=== PATIENT | female | born 1965 | race Caucasian/White ===

== ENCOUNTER 2016-07-15 22:10 | Emergency (ER) | payer MEDICAID ==
[2010-12-08 14:06] VITALS: BMI 33.3
[2016-07-16 02:57] LABS: BASOPHILS 0.7 % (0.0-2.0); EOSINOPHILS 6.2 % (0-7); HEMATOCRIT 41.3 % (36.0-48.0); HEMOGLOBIN 13.7 g/dL (12-16); IMMATURE GRANULOCYTES 0.3 % (0-5); MCH 29.3 pg (26.0-34.0); MCHC 33.2 g/dL (31.0-37.0); MCV 88.4 fL (80.0-100.0); MEAN PLATELET VOLUME 10.2 fL (7.4-10.4); MONOCYTES 9.4 % (2-11); NEUTROPHILS 49.4 % (40-80); PLATELET COUNT 248 10x3/uL (130-400); RBC 4.67 10x6/uL (4.00-5.40); RDW 13.6 % (11.5-14.5); WBC 9.5 10x3/uL (4.8-10.8)
[2016-07-16 03:14] LABS: ANION GAP 12.4 mmol/L (8-16); CALCIUM 9.5 mg/dL (8.5-10.1); CARBON DIOXIDE 28.4 mmol/L (21.0-32.0); CREATININE - SERUM 0.9 mg/dL (0.6-1.3); POTASSIUM - SERUM 3.8 mmol/L (3.5-5.1)
== END 2016-07-16 04:15 | disposition home or self-care (01) ==
LOC: D.ER 22:10
PROVIDERS: Emergency Medicine
DX: M25.561 Pain in right knee (principal); F90.9 Attention-deficit hyperactivity disorder, unspecified type; I50.9 Heart failure, unspecified; J44.9 Chronic obstructive pulmonary disease, unspecified; F32.9 Major depressive disorder, single episode, unspecified; F43.10 Post-traumatic stress disorder, unspecified; F95.2 Tourette's disorder; F17.200 Nicotine dependence, unspecified, uncomplicated; F44.81 Dissociative identity disorder

== ENCOUNTER 2016-07-28 18:48 | Emergency (ER) | payer MEDICAID ==
[2010-12-08 14:06] VITALS: BMI 33.3
[2016-07-28 20:55] LABS: AMORPHOUS SEDIMENT >1+ /lpf (NONE SEEN); APPEARANCE TURBID (CLEAR); BACTERIA MODERATE /hpf (NONE SEEN); BILIRUBIN NEGATIVE (NEGATIVE); COLOR YELLOW (YELLOW); EPITHELIAL CELLS 0-5 /hpf (0-5); GLUCOSE NEGATIVE (NEGATIVE); KETONE SMALL mg/dL (NEGATIVE); LEUKOCYTE ESTERASE TRACE (NEGATIVE); MUCUS <1+ /lpf (NONE SEEN); NITRITE NEGATIVE (NEGATIVE); PROTEIN NEGATIVE (NEGATIVE); SPECIFIC GRAVITY 1.025 (1.005-1.020); WHITE CELLS - URINE 0-5 /hpf (0-5)
== END 2016-07-28 22:00 | disposition home or self-care (01) ==
LOC: D.ER 18:48
PROVIDERS: Nurse Practitioner Family
DX: M54.6 Pain in thoracic spine (principal); M62.830 Muscle spasm of back; S29.012A Strain of muscle and tendon of back wall of thorax, initial encounter; X58.XXXA Exposure to other specified factors, initial encounter; Y93.89 Activity, other specified; Y92.89 Other specified places as the place of occurrence of the external cause; M94.0 Chondrocostal junction syndrome [Tietze]; R05 Cough; F90.9 Attention-deficit hyperactivity disorder, unspecified type; I50.9 Heart failure, unspecified; J44.9 Chronic obstructive pulmonary disease, unspecified; F32.9 Major depressive disorder, single episode, unspecified; F43.10 Post-traumatic stress disorder, unspecified; F60.9 Personality disorder, unspecified; F95.2 Tourette's disorder; F17.200 Nicotine dependence, unspecified, uncomplicated

== ENCOUNTER 2016-11-20 09:10 | Inpatient (IN) | payer MEDICAID ==
[~2016-11-20] VITALS: Ht 157.5 cm; Wt 98.4 kg
[2016-11-20 10:07] LABS: BASOPHILS 0.2 % (0-2); EOSINOPHILS 4.4 % (0-7); HEMATOCRIT 39.2 % (36.0-48.0); HEMOGLOBIN 12.8 g/dL (12-16); IMMATURE GRANULOCYTES 0.3 % (0-5); LYMPHOCYTES 29.4 % (15-50); MCH 28.1 pg (26.0-34.0); MCHC 32.7 g/dL (31.0-37.0); MCV 86.2 fL (80.0-100.0); MEAN PLATELET VOLUME 9.7 fL (7.4-10.4); MONOCYTES 9.2 % (2-11); NEUTROPHILS 56.5 % (40-80); PLATELET COUNT 202 10x3/uL (130-400); RBC 4.55 10x6/uL (4.00-5.40); RDW 14.8 % (11.5-14.5); WBC 8.8 10x3/uL (4.8-10.8)
[2016-11-20 10:15] LABS: APTT 26.8 SECONDS (22.8-39.4); INR 0.96 (0.85-1.17); PROTIME 12.6 SECONDS (11.6-15.0)
[2016-11-20 10:20] LABS: ALBUMIN 3.4 g/dL (3.4-5.0); ANION GAP 13.3 mmol/L (8-16); BILIRUBIN - TOTAL 0.65 mg/dL (0.2-1.3); CALCIUM 9.2 mg/dL (8.5-10.1); CREATININE - SERUM 1.2 mg/dL (0.6-1.3); POTASSIUM - SERUM 3.3 mmol/L (3.5-5.1); PROTEIN - SERUM 6.4 g/dL (6.4-8.2)
[2016-11-20 11:10] LABS: APPEARANCE CLEAR (CLEAR); BACTERIA MODERATE /hpf (NONE SEEN); BILIRUBIN NEGATIVE (NEGATIVE); COLOR YELLOW (YELLOW); EPITHELIAL CELLS 0-5 /hpf (0-5); GLUCOSE NEGATIVE (NEGATIVE); KETONE NEGATIVE (NEGATIVE); LEUKOCYTE ESTERASE TRACE (NEGATIVE); MUCUS <1+ /lpf (NONE SEEN); NITRITE NEGATIVE (NEGATIVE); PROTEIN NEGATIVE (NEGATIVE); RED CELLS - URINE RARE /hpf (0-5); UROBILINOGEN NORMAL (NORMAL)
[2016-11-20 11:12] LABS: UDS - AMPHET POSITIVE QUAL (NEGATIVE); UDS - BARB NEGATIVE QUAL (NEGATIVE); UDS - BENZO POSITIVE QUAL (NEGATIVE); UDS - COCAINE NEGATIVE QUAL (NEGATIVE); UDS - METH NEGATIVE QUAL (NEGATIVE); UDS - OPIATE NEGATIVE QUAL (NEGATIVE); UDS - PCP NEGATIVE QUAL (NEGATIVE); UDS - THC NEGATIVE QUAL (NEGATIVE)
--- NOTE | 2016-11-20 13:20 | NUR ---
RECEIVED TO ROOM 2222 FROM ED VIA STRETCHER. IV TO L HAND PATENT. REDNESS AND SWELLING NOTED TO BLE. O2 2L NC IN USE. SPEECH SLURRED AND DIFFICULT TO UNDERSTAND. DROWSY. FALLS ASLEEP BEFORE ANSWERING QUESTIONS. UNABLE TO OBTAIN GOOD HISTORY. BED ALARM IN USE.
[2016-11-20] MEDS ORDERED: SINEMET 25-1001 EACH PO (13:36)
[2016-11-20] MEDS ORDERED: ADDERALL 30 MG30 MG PO (13:37)
[2016-11-20] MEDS ORDERED: HYDROXYZINE HCL50 MG (13:37)
[2016-11-20] MEDS ORDERED: EFFEXOR XR150 MG PO (13:38)
[2016-11-20] MEDS ORDERED: NEURONTIN600 MG PO (13:38)
[2016-11-20] MEDS ORDERED: ROBAXIN-750750 MG PO (13:39)
[2016-11-20] MEDS ORDERED: CLONAZEPAM2 MG/TAB PO (13:40)
[2016-11-20 14:10] VITALS: BP 140/80; BMI 39.8
--- NOTE | 2016-11-20 15:00 | NUR ---
RESTING QUIETLY WITH EYES CLOSED. RESP EVEN,NONLABORED.
[2016-11-20 15:58] VITALS: BP 91/61
--- NOTE | 2016-11-20 17:00 | NUR ---
BED ALARM SOUNDED. PATIENT GETTING OUT OF BED WITHOUT ASSISTANCE. ASSISTED UP TO BATHROOM. VOIDED WITHOUT DIFFICULTY. ASSISTED BACK TO BED AND BED ALARM TURNED ON. INSTRUCTED TO NOTIFY STAFF FOR ASSIST TO GET OUT OF BED.
[2016-11-20 20:00] VITALS: BP 98/56
--- NOTE | 2016-11-20 20:00 | NUR ---
ASSESSMENT PER FLOWSHEET. FOUND SEVERAL BOTTLES OF HOME MEDS IN PATIENT'S ROOM. NO FAMILY MEMBER AT BEDSIDE. REMOVED MEDS AND CIGARETTES FROM [facility] LABELED MEDS IN PHARMACY HOME MED ENVELOPE AND LABEL CIGARETTES AND PLACED IN LOCK UP AREA OF PHARMCY MED BOX. SALINE LOCK PATENT LEFT HAND. PT LYING IN BED WITH EYES CLOSED AROUSES TO VERBAL STIMULI. SOME CONFUSION WHEN AROUSED.
[2016-11-20] MEDS ORDERED: LATUDA40 MG PO (20:16)
--- NOTE | 2016-11-20 21:30 | NUR ---
MEDS GIVEN PER MAR.
--- NOTE | 2016-11-20 23:00 | NUR ---
PT GETS OUT OF BED ON HER OWN AND VOIDS IN COMMODE.
[2016-11-21] VITALS: BP 134/75
--- NOTE | 2016-11-21 00:30 | NUR ---
UP AD SEVEN TO BR VOIDS IN COMMODE.
--- NOTE | 2016-11-21 01:35 | NUR ---
RESTING IN BED SR UP X2 CALL LIGHT WITHIN REACH.
[2016-11-21 04:00] VITALS: BP 110/61
[2016-11-21 04:47] LABS: BASOPHILS 0.3 % (0-2); EOSINOPHILS 4.6 % (0-7); HEMATOCRIT 40.1 % (36.0-48.0); HEMOGLOBIN 13.2 g/dL (12-16); IMMATURE GRANULOCYTES 0.2 % (0-5); MCH 28.1 pg (26.0-34.0); MCHC 32.9 g/dL (31.0-37.0); MCV 85.5 fL (80.0-100.0); MEAN PLATELET VOLUME 9.9 fL (7.4-10.4); MONOCYTES 7.1 % (2-11); NEUTROPHILS 58.8 % (40-80); PLATELET COUNT 225 10x3/uL (130-400); RBC 4.69 10x6/uL (4.00-5.40); RDW 14.9 % (11.5-14.5); WBC 8.6 10x3/uL (4.8-10.8)
[2016-11-21 05:06] LABS: ANION GAP 10.2 mmol/L (8-16); CALCIUM 9.2 mg/dL (8.5-10.1); CARBON DIOXIDE 31.6 mmol/L (21.0-32.0); CREATININE - SERUM 1.1 mg/dL (0.6-1.3)
[2016-11-21 05:08] LABS: POTASSIUM - SERUM 3.8 mmol/L (3.5-5.1)
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
[2016-11-21 08:09] VITALS: BP 121/57
--- NOTE | 2016-11-21 12:00 | NUR ---
RIGHT FOOT HAS 2 SMALL SCABBED AREAS ON 3RD AND 4TH TOE.ALSO SLIGHTLY DARK AREA ON LEFT FOOT.STATES SHE GOT THOSE WHEN [facility].SITES ON LEFT FOOT WITHOUT DRAINAGE.DISCOLORED AREA ON LEFT FOOT NOT OPEN.
[2016-11-21 13:00] VITALS: Ht 157.5 cm; Wt 98.4 kg
--- NOTE | 2016-11-21 13:05 | NUR ---
WOUND CARE CONSULT: BILATERAL LOWER LEGS SEEN WITH CELLULITIS. NO SKIN BREAKDOWN OR DRAINAGE. SKIN IS SLIGHTY RED IN COLOR AND 2+ EDEMA IS SEEN. BOTTOM OF RIGHT PINKIE IS A 1.0 CM X 1.0 CM BLACK UNSTAGABLE AREA AND THE BOTTOM OG RIGHT 4TH TOE IS A 0.5 CM X 0.5 CM BLACK UNSTAGABLE AREA. PATIENT REPORTS THAT WHEN SHE WAS DISCHARGED FROM [facility], THAT SHE HAD TO WALK HOME BAREFOOT. PATIENT IS ENCOURAGED TO KEEP LEGS PROPPED UP ON PILLOWS TO HELP WITH THE SWELLING. WOUND CARE WILL FOLLOW NEEDED.
--- NOTE | 2016-11-21 15:04 | NUR ---
PT NAPPING WITHOUT DISTRESS.DOOR OPEN TO MONITOR.BED ALARM ON AND FUNCTIONING
--- NOTE | 2016-11-21 17:22 | NUR ---
HAS BEEN TALKING ON PHONE.REMAINS WITHOUT DISTRESS.WITHOUT CHANGE FROM INITIAL SHIFT ASSESSMENT.CONT PLAN OF CARE
[2016-11-21 20:00] VITALS: BP 106/74
[2016-11-22] VITALS: BP 110/80
[2016-11-22 04:00] VITALS: BP 112/77
[2016-11-22 06:00] LABS: BASOPHILS 0.6 % (0-2); EOSINOPHILS 4.7 % (0-7); HEMATOCRIT 41.9 % (36.0-48.0); HEMOGLOBIN 13.6 g/dL (12-16); IMMATURE GRANULOCYTES 0.2 % (0-5); LYMPHOCYTES 33.7 % (15-50); MCH 27.9 pg (26.0-34.0); MCHC 32.5 g/dL (31.0-37.0); MCV 85.9 fL (80.0-100.0); MEAN PLATELET VOLUME 10.2 fL (7.4-10.4); MONOCYTES 10.9 % (2-11); NEUTROPHILS 49.9 % (40-80); PLATELET COUNT 253 10x3/uL (130-400); RBC 4.88 10x6/uL (4.00-5.40)
[2016-11-22 06:22] LABS: ALBUMIN 3.4 g/dL (3.4-5.0); ANION GAP 13.8 mmol/L (8-16); BILIRUBIN - TOTAL 0.37 mg/dL (0.2-1.3); CALCIUM 9.4 mg/dL (8.5-10.1); CARBON DIOXIDE 30.4 mmol/L (21.0-32.0); CREATININE - SERUM 1.2 mg/dL (0.6-1.3); POTASSIUM - SERUM 4.2 mmol/L (3.5-5.1)
--- NOTE | 2016-11-22 06:43 | NUR ---
MEDS GIVEN PER MAR.
--- NOTE | 2016-11-22 07:30 | NUR ---
ASSESSMENT PER FLOW SHEET.PT WITHOUT DISTRESS.DENIES NEEDS AT PRESENT.FALL PREVENTION IN PLACE.CALL LIGHT IN REACH.DOOR OPEN TO MONITOR
[2016-11-22 08:09] VITALS: BP 121/59
--- NOTE | 2016-11-22 11:43 | NUR ---
Patient Name: PRAMOD KIRKPATRICK Admission Status: ER Accout number: [id number] Admission Date: 11-20-2016 : 1965 Admission Diagnosis:CELLULITIS OF RIGHT LOWER LIMB Attending: WILLIAMS Current LOS: 2 Anticipated DC Date: 11-22-2016 Planned Disposition: Home Primary Insurance: [place] Discharge Planning Comments: CM MET WITH PATIENT REGARDING D/C NEEDS AND PLANS. PATIENT STATED SHE IS NOW HOMELESS AND HER FRIEND (MANASA) WILL BE TAKING HER IN AT DISCHARGE TODAY. MANASA WILL BE DRIVING HER HOME. PATIENT IS INDEPENDENT WITH HER CARE AND HAS A CANE AND WALKER SOMEWHERE. PATIENTS PCP IS AT [facility] AND PHARMACY IS [facility] [address]. PATIENT REF. HOME HEALTH. CM WILL CONTINUE TO FOLLOW PATIENT WITH D/C NEEDS AND PLANS. PCP [facility] [address] [phone] MANASA (FRIEND) [phone] Label Stitcher: Ileana Fofana Is the patient Alert and Oriented? Yes 0 * How many steps to enter\exit or inside your home? 0 0 * PCP [facility] [place] 0 * Pharmacy [facility] [address] 0 * Preadmission Environment Custodial 0 * ADLs Independent 0 * Equipment Walker 0 * List name and contact numbers for known caregivers / representatives who currently or will assist patient after discharge: MANASA (FRIEND) [phone] * Community resources currently utilized None 0 * Additional services required to return to the preadmission environment? Yes 0 * Can the patient safely return to the preadmission environment? Yes 0 * Has this patient been hospitalized within the prior 30 days at any hospital? No 0 Grand Total: 0
[2016-11-22 11:59] VITALS: BP 120/71
[2016-11-22] MEDS ORDERED: ACIDOPHILUS LAC1 CAP PO (12:04)
[2016-11-22] MEDS ORDERED: CLEOCIN HCL300 MG PO (12:04)
[2016-11-22] MEDS ORDERED: TYLENOL W/CODEI1 TAB PO (13:17)
--- NOTE | 2016-11-22 14:01 | NUR ---
CM REASSESSMENT NOTE: PATIENT WILL D/C TODAY. MANASA (FRIEND) WILL PICK HER UP BETWEEN 5:30. PATIENT REF. HOME HEALTH.
[2016-11-22 15:19] VITALS: BP 100/60
--- NOTE | 2016-11-22 17:40 | NUR ---
DISCHARGE INSTRUCTIONS ,STATES UNDERSTANDING.IV DCD WITH CATH INTACT.LEFT UNIT VIA WHEELCHAIR.
== END 2016-11-22 17:42 | disposition home or self-care (01) | DRG 603 ==
LOC: D.ER 09:10 → D.MS 11:32
PROVIDERS: Emergency Medicine; Family Medicine; ADMIT Emergency Medicine
DX: L03.115 Cellulitis of right lower limb (principal); F17.203 Nicotine dependence unspecified, with withdrawal; F31.9 Bipolar disorder, unspecified; J45.909 Unspecified asthma, uncomplicated; F20.9 Schizophrenia, unspecified; F15.10 Other stimulant abuse, uncomplicated; F41.9 Anxiety disorder, unspecified; F90.9 Attention-deficit hyperactivity disorder, unspecified type

== ENCOUNTER 2016-12-08 11:48 | Emergency (ER) | payer MEDICAID ==
[2016-11-21 13:00] VITALS: BMI 39.7
[~2016-12-08 11:48] MED LIST: ACIDOPHILUS LAC1 CAP PO; ADDERALL 30 MG30 MG PO; CLEOCIN HCL300 MG PO; CLONAZEPAM2 MG/TAB PO; EFFEXOR XR150 MG PO; HYDROXYZINE HCL50 MG; LATUDA40 MG PO; NEURONTIN600 MG PO; ROBAXIN-750750 MG PO; SINEMET 25-1001 EACH PO; TYLENOL W/CODEI1 TAB PO
== END 2016-12-08 14:42 | disposition home or self-care (01) ==
LOC: D.ER 11:48
DX: S39.012A Strain of muscle, fascia and tendon of lower back, initial encounter (principal); W01.0XXA Fall on same level from slipping, tripping and stumbling without subsequent striking against object, initial encounter; Y93.89 Activity, other specified; Y92.89 Other specified places as the place of occurrence of the external cause; M79.1 Myalgia

== ENCOUNTER → 2017-02-02 09:33 | Outpatient (CLI) | payer MEDICAID ==
[2016-11-21 13:00] VITALS: BMI 39.7
== END | disposition home or self-care (01) ==
LOC: D.US 09:33
DX: M79.604 Pain in right leg (principal)

== ENCOUNTER → 2017-03-02 08:19 | Outpatient (CLI) | payer MEDICAID ==
[2016-11-21 13:00] VITALS: BMI 39.7
== END | disposition home or self-care (01) ==
LOC: D.CN 08:19 → D.RT 08:19
DX: Z13.6 Encounter for screening for cardiovascular disorders (principal)

== ENCOUNTER 2017-03-09 16:39 | Emergency (ER) | payer MEDICAID ==
[2016-11-21 13:00] VITALS: BMI 39.7
== END 2017-03-09 21:04 | disposition home or self-care (01) ==
LOC: D.ER 16:39
DX: S63.502A Unspecified sprain of left wrist, initial encounter (principal); W19.XXXA Unspecified fall, initial encounter; Y93.89 Activity, other specified; Y92.029 Unspecified place in mobile home as the place of occurrence of the external cause

== ENCOUNTER 2017-04-29 12:51 | Emergency (ER) | payer MEDICAID ==
[2016-11-21 13:00] VITALS: BMI 39.7
== END 2017-04-29 14:37 | disposition home or self-care (01) ==
LOC: D.ER 12:51
DX: L25.9 Unspecified contact dermatitis, unspecified cause (principal); S69.92XA Unspecified injury of left wrist, hand and finger(s), initial encounter; X58.XXXA Exposure to other specified factors, initial encounter; Y93.89 Activity, other specified; Y92.89 Other specified places as the place of occurrence of the external cause; F17.200 Nicotine dependence, unspecified, uncomplicated

== ENCOUNTER 2017-09-18 13:11 | Emergency (ER) | payer MEDICAID ==
[2016-11-21 13:00] VITALS: BMI 39.7
== END 2017-09-18 17:20 | disposition home or self-care (01) ==
LOC: D.ER 13:11
DX: Z76.0 Encounter for issue of repeat prescription (principal)

== ENCOUNTER 2017-12-06 11:58 | Emergency (ER) | payer MEDICAID ==
[~2017-12-06] VITALS: Ht 157.5 cm; Wt 109.1 kg
[2017-12-06 12:22] VITALS: Ht 157.5 cm; Wt 109.1 kg
[2017-12-06] MEDS ORDERED: ROBAXIN-750750 MG PO (14:08)
[2017-12-06] MEDS ORDERED: TALWIN NX1 TAB PO (14:08)
[2017-12-06 14:27] VITALS: BP 101/71
== END 2017-12-06 14:27 | disposition home or self-care (01) ==
LOC: D.ER 11:58
DX: S80.01XA Contusion of right knee, initial encounter (principal); W10.9XXA Fall (on) (from) unspecified stairs and steps, initial encounter; Y93.89 Activity, other specified; Y92.019 Unspecified place in single-family (private) house as the place of occurrence of the external cause; M25.511 Pain in right shoulder; M25.532 Pain in left wrist; M25.531 Pain in right wrist; F17.200 Nicotine dependence, unspecified, uncomplicated

== ENCOUNTER 2018-01-23 21:43 | Emergency (ER) | payer MEDICAID ==
[~2018-01-23 21:43] MED LIST changes: +TALWIN NX1 TAB PO
[2018-01-23 21:45] VITALS: Ht 157.5 cm
[2018-01-24] MEDS ORDERED: ROBAXIN500 MG PO (00:57)
[2018-01-24] MEDS ORDERED: VOLTAREN75 MG PO (00:57)
[2018-01-24] MEDS ORDERED: TALWIN NX1 TAB PO (01:00)
[2018-01-24 02:00] VITALS: BP 112/61
== END 2018-01-24 02:00 | disposition home or self-care (01) ==
LOC: D.ER 21:43
DX: S09.90XA Unspecified injury of head, initial encounter (principal); W10.9XXA Fall (on) (from) unspecified stairs and steps, initial encounter; Y93.89 Activity, other specified; Y92.019 Unspecified place in single-family (private) house as the place of occurrence of the external cause; S39.012A Strain of muscle, fascia and tendon of lower back, initial encounter; F17.200 Nicotine dependence, unspecified, uncomplicated; F90.9 Attention-deficit hyperactivity disorder, unspecified type; G62.9 Polyneuropathy, unspecified

== ENCOUNTER 2018-04-10 13:03 | Emergency (ER) | payer MEDICAID ==
[~2018-04-10] VITALS: Ht 157.5 cm; Wt 106.8 kg
[~2018-04-10 13:03] MED LIST changes: +ROBAXIN500 MG PO; +VOLTAREN75 MG PO
[2018-04-10 13:21] VITALS: Ht 157.5 cm; Wt 106.8 kg
[2018-04-10] MEDS ORDERED: PHENERGAN DM SYR5 ML PO (15:40)
[2018-04-10] MEDS ORDERED: VIBRAMYCIN 100100 MG PO (15:40)
[2018-04-10 17:11] VITALS: BP 130/75
== END 2018-04-10 17:13 | disposition home or self-care (01) ==
LOC: D.ER 13:03
DX: J06.9 Acute upper respiratory infection, unspecified (principal); J40 Bronchitis, not specified as acute or chronic; R09.89 Other specified symptoms and signs involving the circulatory and respiratory systems; F17.200 Nicotine dependence, unspecified, uncomplicated

== ENCOUNTER 2018-08-06 16:07 | Emergency (ER) | payer MEDICAID ==
[~2018-08-06] VITALS: Ht 157.5 cm; Wt 110.5 kg
[~2018-08-06 16:07] MED LIST changes: +PHENERGAN DM SYR5 ML PO; +VIBRAMYCIN 100100 MG PO
[2018-08-06 16:08] VITALS: Ht 157.5 cm; Wt 110.5 kg
[2018-08-06] MEDS ORDERED: LATUDA40 MG PO (16:29)
[2018-08-06] MEDS ORDERED: CARBIDOPA-LEVO1 EAC2 PO (16:29)
[2018-08-06] MEDS ORDERED: LAMICTAL25 MG PO (16:31)
[2018-08-06] MEDS ORDERED: CYCLOBENZAPRINE5 MG PO (16:32)
[2018-08-06] MEDS ORDERED: DICLOFENAC SODI50 MG PO (17:49)
[2018-08-06 18:04] VITALS: BP 141/96
== END 2018-08-06 18:00 | disposition home or self-care (01) ==
LOC: D.ER 16:07
DX: M25.512 Pain in left shoulder (principal); Z76.5 Malingerer [conscious simulation]

== ENCOUNTER 2018-08-22 06:25 | Emergency (ER) | payer MEDICAID ==
[~2018-08-22] VITALS: Ht 157.5 cm; Wt 109.5 kg
[~2018-08-22 06:25] MED LIST changes: +CARBIDOPA-LEVO1 EAC2 PO; +CYCLOBENZAPRINE5 MG PO; +DICLOFENAC SODI50 MG PO; +LAMICTAL25 MG PO
[2018-08-22 06:26] VITALS: Ht 157.5 cm; Wt 109.5 kg
[2018-08-22 07:12] LABS: BASOPHILS 0.1 % (0-2); EOSINOPHILS 2.2 % (0-7); HEMATOCRIT 41.4 % (36.0-48.0); HEMOGLOBIN 13.6 g/dL (12-16); IMMATURE GRANULOCYTES 0.7 % (0-5); LYMPHOCYTES 4.7 % (15-50); MCHC 32.9 g/dL (31.0-37.0); MCV 82.1 fL (80.0-100.0); MEAN PLATELET VOLUME 9.5 fL (7.4-10.4); MONOCYTES 4.5 % (2-11); NEUTROPHILS 87.8 % (40-80); PLATELET COUNT 295 10x3/uL (130-400); RBC 5.04 10x6/uL (4.00-5.40); RDW 21.4 % (11.5-14.5); WBC 13.3 10x3/uL (4.8-10.8)
[2018-08-22] MEDS ORDERED: ZOFRAN ODT4 MG/UDTAB PO (07:30)
[2018-08-22 07:31] LABS: ALBUMIN 3.5 g/dL (3.4-5.0); ALKALINE PHOSPHATASE 87 U/L (46-116); ALT (SGPT) 11 U/L (10-68); BILIRUBIN - TOTAL 0.69 mg/dL (0.2-1.3); CALC OSMOLALITY 283 mosm/kg (275-300); CALCIUM 8.7 mg/dL (8.5-10.1); CARBON DIOXIDE 29.3 mmol/L (21.0-32.0); CHLORIDE - SERUM 104 mmol/L (98-107); CREATININE - SERUM 0.9 mg/dL (0.6-1.3); GLUCOSE 123 mg/dL (74-106); POTASSIUM - SERUM 4.7 mmol/L (3.5-5.1); SODIUM 140 mmol/L (136-145); UREA NITROGEN 25 mg/dL (7-18); eGFR NON AFRICAN AMERICAN 70 mL/min (90-120)
[2018-08-22 07:35] LABS: AMYLASE - SERUM 33 U/L (25-115); LIPASE 93 U/L (73-393); TROPONIN-I < 0.017 ng/mL (0.000-0.060)
[2018-08-22 07:59] LABS: APPEARANCE CLEAR (CLEAR); BILIRUBIN NEGATIVE (NEGATIVE); COLOR YELLOW (YELLOW); GLUCOSE NEGATIVE (NEGATIVE); KETONE NEGATIVE (NEGATIVE); NITRITE NEGATIVE (NEGATIVE); PROTEIN NEGATIVE (NEGATIVE); SPECIFIC GRAVITY 1.005 (1.005-1.020); UROBILINOGEN NORMAL (NORMAL)
[2018-08-22 08:11] VITALS: BP 139/87
== END 2018-08-22 08:10 | disposition home or self-care (01) ==
LOC: D.ER 06:25
PROVIDERS: Family Medicine
DX: R10.9 Unspecified abdominal pain (principal); R11.2 Nausea with vomiting, unspecified

== ENCOUNTER 2019-02-22 16:45 | Inpatient (IN) | payer MEDICAID ==
[~2019-02-22] VITALS: Ht 157.5 cm; Wt 79.8 kg
[~2019-02-22 16:45] MED LIST changes: +ZOFRAN ODT4 MG/UDTAB PO
[2019-02-22 19:55] LABS: BASOPHILS 0.2 % (0-2); EOSINOPHILS 0.1 % (0-7); HEMATOCRIT 26.2 % (36.0-48.0); HEMOGLOBIN 8.4 g/dL (12-16); IMMATURE GRANULOCYTES 0.6 % (0-5); MCH 22.3 pg (26.0-34.0); MCHC 32.1 g/dL (31.0-37.0); MCV 69.7 fL (80.0-100.0); MONOCYTES 8.5 % (2-11); NEUTROPHILS 83.6 % (40-80); PLATELET COUNT 351 10x3/uL (130-400); RBC 3.76 10x6/uL (4.00-5.40); RDW 19.8 % (11.5-14.5); WBC 17.1 10x3/uL (4.8-10.8)
[2019-02-22 20:10] LABS: ALBUMIN 4.1 g/dL (3.4-5.0); ANION GAP 16.2 mmol/L (8-16); CALCIUM 9.6 mg/dL (8.5-10.1); CARBON DIOXIDE 25.8 mmol/L (21.0-32.0); MAGNESIUM - SERUM 1.7 mg/dL (1.8-2.4)
[2019-02-22 20:30] VITALS: BP 118/74
[2019-02-22 20:58] LABS: UDS - AMPHET NEGATIVE QUAL (NEGATIVE); UDS - BARB NEGATIVE QUAL (NEGATIVE); UDS - BENZO NEGATIVE QUAL (NEGATIVE); UDS - COCAINE NEGATIVE QUAL (NEGATIVE); UDS - OPIATE NEGATIVE QUAL (NEGATIVE); UDS - PCP NEGATIVE QUAL (NEGATIVE); UDS - THC POSITIVE QUAL (NEGATIVE)
--- NOTE | 2019-02-22 21:04 | NUR ---
SCREENER TO BEDSIDE.
[2019-02-22 21:05] LABS: APPEARANCE HAZY (CLEAR); BILIRUBIN NEGATIVE (NEGATIVE); COLOR YELLOW (YELLOW); GLUCOSE NEGATIVE (NEGATIVE); KETONE NEGATIVE (NEGATIVE); NITRITE NEGATIVE (NEGATIVE); PROTEIN 2+ mg/dL (NEGATIVE); UROBILINOGEN NORMAL (NORMAL)
--- NOTE | 2019-02-22 21:13 | NUR ---
DR MONTES NOTIFIED AND REVIEWED PATIENT'S BEHAVIOR AND ASSESSMENT RESULTS. PT IS AT NO RISK FOR SELF HARM. NO FURTHER ORDERS AT THIS TIME.
[2019-02-22 21:24] LABS: BACTERIA MODERATE /hpf (NEGATIVE); EPITHELIAL CELLS 0-5 /hpf (0-5); RED CELLS - URINE 0-5 /hpf (0-5)
[2019-02-22 21:25] LABS: HYALINE CAST 0-5 /lpf (NONE SEEN); MUCUS <1+ /lpf (NONE SEEN)
[2019-02-22 21:40] VITALS: BP 116/62
--- NOTE | 2019-02-22 23:30 | NUR ---
INFORMED THAT HYPERTET (TETANUS) WOULDNT NOT BE AVALIABLE TONIGHT. NO NEW ORDERS GIVEN. CONFERENCE CENTER MANAGER GISELLE INFORMED.
[2019-02-23] VITALS (7 sets, daily range): BP systolic 111–136; BP diastolic 53–71; Ht 157.5 cm; Wt 79.8 kg
--- NOTE | 2019-02-23 05:14 | NUR ---
PATIENT IS ALERT AND ORENTED FOR THE MOST PART, SHE GIVES A VERT POOR HISTORY. SATTED THAT GOES TO [facility] IN [place] BUT HAS NOT BEEN IN A LONG TIME. sTATED THAT IS WHERE SHE GETS HER MEDICATION BUT DOES NOT KNOW IF THEY STILL HAVE IT THERE. DOES NOT REMEMBER WHEN SHE LAST TOOK SOME OF HER MEDICATIONS. STATED THAT SHE HAS BEEN OFF SOME OF THEM FOR A LONG TIME BUT COULD NOT SAY HOW LONG.SHE IS HAVING A LOT OF ANXITY. TELEMETRY IN PLACE PER ORDERS 101 SINIS TACK. IV TO LEFT HAND WITH NO REDNESS NOTED HAD TO RUN POTASSIUM SLOW DUE TO BRUNING.
[2019-02-23 06:53] LABS: BASOPHILS 0.2 % (0-2); EOSINOPHILS 0.7 % (0-7); HEMATOCRIT 20.9 % (36.0-48.0); IMMATURE GRANULOCYTES 0.4 % (0-5); LYMPHOCYTES 16.9 % (15-50); MCH 22.5 pg (26.0-34.0); MCHC 32.5 g/dL (31.0-37.0); MCV 69.2 fL (80.0-100.0); MEAN PLATELET VOLUME 9.4 fL (7.4-10.4); MONOCYTES 9.7 % (2-11); NEUTROPHILS 72.1 % (40-80); PLATELET COUNT 309 10x3/uL (130-400); RBC 3.02 10x6/uL (4.00-5.40); RDW 19.9 % (11.5-14.5)
--- NOTE | 2019-02-23 07:10 | NUR ---
ALERT AND ORIENTED, RESTING IN BED. NO C/O PAIN. NO S/S OF ACUTE DISTRESS NOTED. POOR HISTORIAN.IV TO LEFT HAND, NS INFUSING @ 125ML/HR. SITE PATENT WITHOUT REDNESS OR SWELLING. CRITICAL HGB 6.8 THIS AM, PAGED PHYSICIAN INSTRUCTOR BRIDGE. TELEMETRY [address] ST[address] DENIES ANY NEEDS AT THIS TIME. CALL LIGHT IN REACH. WILL CONTINUE TO MONITOR.
[2019-02-23 07:13] LABS: ALBUMIN 3.2 g/dL (3.4-5.0); ANION GAP 11.1 mmol/L (8-16); BILIRUBIN - TOTAL 0.75 mg/dL (0.2-1.3); CALCIUM 8.3 mg/dL (8.5-10.1); POTASSIUM - SERUM 3.1 mmol/L (3.5-5.1); PROTEIN - SERUM 5.7 g/dL (6.4-8.2)
[2019-02-23 07:14] LABS: HEMOGLOBIN 6.8 g/dL (12-16)
[2019-02-23 07:16] LABS: CREATININE - SERUM 1.3 mg/dL (0.6-1.3)
[2019-02-23 08:06] LABS: % SATURATION 73 % (15-55); IRON 159 ug/dl (35-150); TOTAL IRON BIND CAPACITY 216 ug/dl (260-445); UNSAT IRON BIND CAPACITY 57 ug/dl (150-375)
[2019-02-23 18:35] LABS: HEMATOCRIT 27.1 % (36.0-48.0); HEMOGLOBIN 8.9 g/dL (12-16)
--- NOTE | 2019-02-23 20:46 | NUR ---
ALERT AND ORENTED ABLE TO VOICE NEEDS AND WANTS TO STAFF. WATER AND CALL LIGHT IN REACH. IV TO LEFT HAND IN PLACE AND PATEN WITH NO REDNESS NOTED NO C/O PAIN AT SITE. ON ROOM AIR . NO S/S OF ADVERS REACTION TO BLOOD GIVEN TODAY. BED LOW SCD'S ON PLACE CALL LIGHTAND WATER IN REACH.
[2019-02-24] VITALS (7 sets, daily range): BP systolic 110–161; BP diastolic 64–85
--- NOTE | 2019-02-24 07:27 | NUR ---
PT RESTING IN BED WITH EYES OPEN, ALERT AND ORIENTED BUT DOES SEEM TO HAVE A LITTLE CONFUSION. IV LOCATED TO LEFT HAND RUNNING NS @ 50ML. RESERVE BOTH ARMS. STILL NEED STOOL SAMPLE, NIGHT RN STATES PT WASNT ABLE TO HAVE BM DURING PHYSICIAN ASSISTANT CERTIFIED. NO S/S OF DISTRESS AT THIS TIME, DENIES NEEDS, WILL CONT TO MONITOR.
--- NOTE | 2019-02-24 13:06 | HP ---
PATIENT: PRAMOD KIRKPATRICK MEDICAL RECORD: [id number] ACCOUNT: [id number] LOCATION:D.MS [address] : [birth year] ADMISSION DATE: 02/22/19 PCP: TANYA MCLAUGHLIN [facility] HISTORY AND PHYSICAL EXAMINATION DATE OF ADMISSION: 02/22/2019 CHIEF COMPLAINT: Anxiety, fatigue, and anemia. HISTORY: This is a 53-year-old female, who presented complaining of anxiety, but states she felt better once she got to the ER. Then she complained of cough, cold symptoms, some diarrhea, decreased appetite, just generalized malaise. She reportedly has been out of [employer] for over a month. She sees a primary care physician in [place]. She is definitely not a good historian. In the ER, her BUN and creatinine were 30 and 2.0 respectively and I do not know her baseline. Her potassium was 3.0. Her hemoglobin was 8.4 and hematocrit 26 with an MCV of 69. Urine drug screen was positive for THC. Urinalysis appeared infected. She was admitted. The next morning before I saw her, her hemoglobin after getting IV fluids was down to 6.8 with an MCV of 69. She is admitted for further treatment and workup. PAST MEDICAL HISTORY: (This is gained from previous records here and [facility] at [facility] where she was last seen over 2 years ago). Has a history of anxiety, bipolar type 1 disease, Tourette syndrome, manic depressive disorder, peripheral neuropathy, fibromyalgia, fibrocystic breast disease, and remote history of bleeding ulcers. PAST SURGICAL HISTORY: Hysterectomy, appendectomy, cholecystectomy. She states she had a double mastectomy not for cancer, but for painful fibrocystic breast disease. ALLERGIES: REPORTEDLY TO ASPIRIN, ATIVAN, MORPHINE, TORADOL, LYRICA, TRAMADOL, AND SULFA. CURRENT MEDICATIONS: Effexor and albuterol inhaler p.r.n. She has been on other medicines including psych meds, but states she is not taking any of these. HABITS: She smokes cigarettes. She denies any alcohol use. She states she has used marijuana in the past, but none recently. SOCIAL HISTORY: She lives alone. She states her parents are living. FAMILY HISTORY: Father had heart disease and lung cancer. REVIEW OF SYSTEMS: GENERAL: No major weight changes. HEENT: No particular sinus or allergy problems. RESPIRATORY: She uses an inhaler, but is not sure of a diagnosis of COPD or asthma. CARDIAC: No known heart disease. GASTROINTESTINAL: No known diarrhea, constipation or heartburn. She states she had bleeding ulcers in the past. MUSCULOSKELETAL: She states she hurts all over with various aches and pains. NEUROLOGIC: No known migraines. No seizures. There is a written past history of Tourette syndrome. HISTORY AND PHYSICAL [id number] PRAMOD KIRKPATRICK PSYCHIATRIC: According to her past history, she has type 1 bipolar disease, anxiety, depression. PHYSICAL EXAMINATION: VITAL SIGNS: Temperature 99.1, pulse 94, respirations 20, blood pressure 136/63. GENERAL: She does not appear to be in acute distress. She is awake and alert. SKIN: Warm and dry. HEENT: Grossly within normal limits. NECK: Supple. No JVD or bruit. HEART: Regular rate and rhythm. LUNGS: Clear. ABDOMEN: Soft, flat, nontender. EXTREMITIES: No edema. LABORATORY DATA: Initially white count was 17,000 with a hemoglobin of 8.4, hematocrit 26.2, MCV is 69.7. Basic metabolic panel showed a sodium of 130, potassium 3.0, BUN 30, creatinine 2.0, glucose 140, calcium 9.6, magnesium 1.7. Repeat CBC at 5:40 on February 23; white count 11,000, hemoglobin down to 6.8, hematocrit 20.9, MCV is 69. Urine drug screen, THC positive. Urinalysis; yellow, hazy with 2+ protein, trace blood, 5-10 white blood cells, moderate bacteria, 0-5 epithelial cells. Further lab showed a reticulocyte count low at 0.12. Repeat BUN and creatinine at 5:40 were 23 and 1.3 respectively. Iron level was actually in the high range at 159, TIBC is low at 216, iron saturation is high at 73, ferritin is high at 308. Folate is low at 2.6. Chest x-ray shows nothing acute. ASSESSMENT: 1. Urinary tract infection. 2. Microcytic anemia. 3. Possible bipolar disease with anxiety. 4. Possible Tourette syndrome. PLAN: We will hemoccult stool, transfuse some blood. We need to get further records to see. If there are family members around, they can give us better history. Other tests and procedures as warranted. TRANSINT:[id number] Voice Confirmation ID: [id number] DOCUMENT ID: [id number] AKSHAT WALTON MD at 1306 CC: [id number] DICTATION DATE: 02/24/19 1203 CROWN BLOCKER: 02/24/19 1254 ADM IN [facility] [address] [id number]
--- NOTE | 2019-02-24 16:26 | NUR ---
STOOL COLLECTED AND TAKEN TO LAB.
--- NOTE | 2019-02-24 21:53 | NUR ---
Alert and orented able to voice needs to staff , in bed with scd' in place bed low, call light and water in reach. IV to left hand intact and paten, with ns at 502ml/hr with no redness noted denies pain at site. patient has diarrhea this shift has had incontinence x tow at this time becouse of it.kathrin pain or needs at this time.
[2019-02-25 04:00] VITALS: BP 145/70
[2019-02-25 05:29] LABS: ANION GAP 11.9 mmol/L (8-16); CALCIUM 8.7 mg/dL (8.5-10.1); CARBON DIOXIDE 26.2 mmol/L (21.0-32.0); POTASSIUM - SERUM 3.1 mmol/L (3.5-5.1)
[2019-02-25 06:21] LABS: BASOPHILS 0.3 % (0-2); EOSINOPHILS 3.6 % (0-7); HEMATOCRIT 26.1 % (36.0-48.0); HEMOGLOBIN 8.6 g/dL (12-16); IMMATURE GRANULOCYTES 0.5 % (0-5); LYMPHOCYTES 23.2 % (15-50); MCH 23.5 pg (26.0-34.0); MCV 71.3 fL (80.0-100.0); MEAN PLATELET VOLUME 9.8 fL (7.4-10.4); MONOCYTES 7.2 % (2-11); NEUTROPHILS 65.2 % (40-80); PLATELET COUNT 287 10x3/uL (130-400); RBC 3.66 10x6/uL (4.00-5.40); RDW 19.5 % (11.5-14.5); WBC 9.5 10x3/uL (4.8-10.8)
--- NOTE | 2019-02-25 08:00 | NUR ---
AWAKE AND ALERT. ORIENTED X3. NO C/O AT THIS TIME. LUNGS ARE CLEAR BILATERALLY, NO COUGH NOTED. SKIN IS INTACT WITHOUT REDNESS. IV TO LEFT HAND IS PATENT WITHOUT REDNESS AT INSERTION SITE. DENIES NEEDS.
[2019-02-25 08:36] VITALS: BP 131/72
--- NOTE | 2019-02-25 09:30 | NUR ---
REFUSED DULCOLAX THIS AM. REPORTED 4 DIARRHEA STOOLS IN PM.
--- NOTE | 2019-02-25 10:30 | NUR ---
UP TO SHOWER WITH SET UP ASSISTANCE. LINENS CHANGED PER STAFF.
[2019-02-25 12:48] VITALS: BP 120/74
[2019-02-25 16:30] VITALS: BP 147/69
--- NOTE | 2019-02-25 18:05 | NUR ---
ATE ALL OF SUPPER. NO CHANGES NOTED. DENIES NEEDS.
--- NOTE | 2019-02-25 19:00 | NUR ---
PATIENT SITTING UP IN BED. PATIENT STATES SHE IS FEELING BETTER THEN SHE DID THIS MORNING. PATIENT ALSO STATES SHE IS NOT IN PAIN AT THIS TIME. ENCOURAGED PATIENT TO CALL WITH ANY NEEDS. BED IN LOW POSITION. CALL LIGHT AND BEDSIDE TABLE WITHIN REACH.
[2019-02-25 20:00] VITALS: BP 108/61
[2019-02-26 04:00] VITALS: BP 120/72
[2019-02-26 08:26] VITALS: BP 124/80
--- NOTE | 2019-02-26 10:34 | NUR ---
PT ALERT X 4. BREATH SOUNDS CLEAR BILAT. TELEMETRY IN PLACE. IV TO LEFT FOREARM, PATENT, DRESSING CDI. PT REPORTING PAIN OF 5/10, WILL MONITOR. BED LOW, CALL LIGHT IN REACH. NO OTHER NEEDS AT THIS TIME.
[2019-02-26 10:57] LABS: BASOPHILS 0.3 % (0-2); EOSINOPHILS 4.4 % (0-7); HEMATOCRIT 25.8 % (36.0-48.0); HEMOGLOBIN 8.4 g/dL (12-16); IMMATURE GRANULOCYTES 0.8 % (0-5); LYMPHOCYTES 24.6 % (15-50); MCH 23.7 pg (26.0-34.0); MCHC 32.6 g/dL (31.0-37.0); MCV 72.7 fL (80.0-100.0); MEAN PLATELET VOLUME 9.3 fL (7.4-10.4); MONOCYTES 5.4 % (2-11); NEUTROPHILS 64.5 % (40-80); PLATELET COUNT 296 10x3/uL (130-400); RBC 3.55 10x6/uL (4.00-5.40); RDW 19.9 % (11.5-14.5); WBC 11.8 10x3/uL (4.8-10.8)
--- NOTE | 2019-02-26 11:55 | MORECARE ---
CASE MANAGEMENT DISCHARGE SUMMARY PATIENT: PRAMOD KIRKPATRICK UNIT: [id number] ADM DATE: 02/22/19 AGE: 53 : [birth year] SEX: F ROOM/BED: D.2203 AUTHOR: FARHAD LINARES PHYSICIAN: REFERRING PHYSICIAN: AKSHAT WALTON MD DATE OF SERVICE: 02/26/19 Discharge Plan Patient Name: PRAMOD KIRKPATRICK [facility] [facility] 1965 Planned Disposition: Home or Self Care Anticipated Discharge Date: Discharge Date: Expected LOS: Initial Reviewer: [email or web address] Initial Review Date: 02/23/2019 Generated: 02/26/19 12:55 pm DCPIA - Discharge Planning Initial Assessment Updated by [email or web address]: Cindy Vogel on 02/26/19 11:52 am * Is the patient Alert and Oriented? Yes * How many steps to enter\exit or inside your home? * PCP [facility] [place] * Pharmacy [facility] * Preadmission Environment Home Alone * ADLs Independent * Equipment None * List name and contact numbers for known caregivers / representatives who currently or will assist patient after discharge: HARSHIL (SISTER) [phone] * Verbal permission to speak to the caregivers and representatives has been obtained from the patient. N/A * Community resources currently utilized None * Please name any agencies selected above. [facility] ON [facility] * Additional services required to return to the preadmission environment? Yes * Can the patient safely return to the preadmission environment? Yes * Has this patient been hospitalized within the prior 30 days at any hospital? No Patient Name: PRAMOD KIRKPATRICK Page 22101 at 1155 All edits/amendments must be made on the electronic document DICTATION DATE: 02/26/19 1155 AIR DEFENSE ARTILLERY OFFICER: GRACE 02/26/19 1155 RPT#: [id number] DC DATE: STATUS: ADM IN [facility] [address] [place] [address] END OF REPORT
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
[2019-02-26 12:24] VITALS: BP 126/78
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
[2019-02-26 17:19] VITALS: BP 124/79
[2019-02-26 19:00] VITALS: BP 111/50
[2019-02-27] VITALS: BP 108/69
[2019-02-27 04:00] VITALS: BP 122/67
[2019-02-27 07:11] LABS: BASOPHILS 0.5 % (0-2); HEMATOCRIT 25.5 % (36.0-48.0); HEMOGLOBIN 8.3 g/dL (12-16); IMMATURE GRANULOCYTES 2.9 % (0-5); LYMPHOCYTES 27.6 % (15-50); MCH 23.6 pg (26.0-34.0); MCHC 32.5 g/dL (31.0-37.0); MCV 72.4 fL (80.0-100.0); MEAN PLATELET VOLUME 9.2 fL (7.4-10.4); MONOCYTES 6.3 % (2-11); NEUTROPHILS 57.7 % (40-80); RBC 3.52 10x6/uL (4.00-5.40); RDW 20.5 % (11.5-14.5); WBC 14.3 10x3/uL (4.8-10.8)
[2019-02-27 07:12] LABS: ANION GAP 12.2 mmol/L (8-16); CALCIUM 8.5 mg/dL (8.5-10.1); CARBON DIOXIDE 25.2 mmol/L (21.0-32.0); POTASSIUM - SERUM 4.4 mmol/L (3.5-5.1)
[2019-02-27 07:15] LABS: PLATELET COUNT 365 10x3/uL (130-400)
[2019-02-27 08:30] VITALS: BP 118/64
--- NOTE | 2019-02-27 09:11 | NUR ---
PT ALERT X 4. BREATH SOUNDS CLEAR BILAT. TELEMETRY IN PLACE. IV TO LEFT FOREARM, PATENT, DRESSING CDI. PT REPORTING PAIN OF 7/10, WILL MONITOR. BED LOW, CALL LIGHT IN REACH. NO OTHER NEEDS AT THIS TIME.
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
--- NOTE | 2019-02-27 13:21 | NUR ---
DISCHARGE PAPERWORK SIGNED, ALL QUESTIONS ANSWERED. IV TO LEFT FOREARM DC'D, TIP INTACT. ESCORTED OUT BY WHEELCHAIR.
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
== END 2019-02-27 14:01 | disposition home or self-care (01) | DRG 690 ==
LOC: D.ER 16:45 → D.MS 23:25
PROVIDERS: Emergency Medicine; Family Medicine; ADMIT Family Medicine; ATTEND Family Medicine
DX: N39.0 Urinary tract infection, site not specified (principal); E87.1 Hypo-osmolality and hyponatremia; D64.9 Anemia, unspecified; E86.0 Dehydration; F31.9 Bipolar disorder, unspecified; F41.9 Anxiety disorder, unspecified; F95.2 Tourette's disorder; E87.6 Hypokalemia; D72.829 Elevated white blood cell count, unspecified

== ENCOUNTER → 2019-03-20 13:02 | Outpatient (CLI) | payer MEDICAID ==
[2019-02-23 11:55] VITALS: BMI 32.2
== END | disposition home or self-care (01) ==
LOC: D.US 03-12 08:30
PROVIDERS: ATTEND Nurse Practitioner Family
DX: N64.4 Mastodynia (principal)

== ENCOUNTER 2019-04-12 13:48 | Emergency (ER) | payer MEDICAID ==
[~2019-04-12] VITALS: Ht 157.5 cm; Wt 98.6 kg
[2019-04-12 14:43] VITALS: Ht 157.5 cm; Wt 98.6 kg
[2019-04-12 15:13] LABS: BASOPHILS 0.4 % (0-2); EOSINOPHILS 3.6 % (0-7); HEMATOCRIT 35.5 % (36.0-48.0); HEMOGLOBIN 11.2 g/dL (12-16); IMMATURE GRANULOCYTES 0.7 % (0-5); LYMPHOCYTES 30.1 % (15-50); MCH 25.5 pg (26.0-34.0); MCHC 31.5 g/dL (31.0-37.0); MCV 80.9 fL (80.0-100.0); MEAN PLATELET VOLUME 8.9 fL (7.4-10.4); MONOCYTES 8.7 % (2-11); NEUTROPHILS 56.5 % (40-80); PLATELET COUNT 364 10x3/uL (130-400); RBC 4.39 10x6/uL (4.00-5.40); RDW 21.9 % (11.5-14.5); WBC 10.7 10x3/uL (4.8-10.8)
--- NOTE | 2019-04-12 15:20 | NUR ---
DR. MONTES NOTIFIED AND REVIEWED PT'S BEHAVIOR AND ASSESSMENT RESULTS. PT IS A LOW RISK PER DR. MONTES. DR. MONTES STATED TO GIVE RESOURCES TO PT AT TIME OF DISHCARGE. NO FURTHER ORDERS AT THIS TIME. RESOUCRES REVIEWED WITH PT AND SHE VERBALIZIED UNDERSTANDING.
[2019-04-12 15:22] LABS: UDS - AMPHET NEGATIVE QUAL (NEGATIVE); UDS - BARB NEGATIVE QUAL (NEGATIVE); UDS - BENZO NEGATIVE QUAL (NEGATIVE); UDS - COCAINE NEGATIVE QUAL (NEGATIVE); UDS - OPIATE NEGATIVE QUAL (NEGATIVE); UDS - PCP NEGATIVE QUAL (NEGATIVE); UDS - THC NEGATIVE QUAL (NEGATIVE)
[2019-04-12 15:31] LABS: ANION GAP 14.3 mmol/L (8-16); CALCIUM 9.6 mg/dL (8.5-10.1); CARBON DIOXIDE 26.5 mmol/L (21.0-32.0); POTASSIUM - SERUM 3.8 mmol/L (3.5-5.1)
[2019-04-12 15:33] LABS: APPEARANCE CLEAR (CLEAR); BILIRUBIN NEGATIVE (NEGATIVE); COLOR YELLOW (YELLOW); GLUCOSE NEGATIVE (NEGATIVE); KETONE NEGATIVE (NEGATIVE); NITRITE NEGATIVE (NEGATIVE); PROTEIN NEGATIVE (NEGATIVE); SPECIFIC GRAVITY 1.025 (1.005-1.020); UROBILINOGEN NORMAL (NORMAL)
[2019-04-12 15:37] LABS: BILIRUBIN - TOTAL 0.45 mg/dL (0.2-1.3); PROTEIN - SERUM 7.7 g/dL (6.4-8.2)
[2019-04-13 02:08] VITALS: BP 105/56
== END 2019-04-13 02:11 ==
LOC: D.ER 13:48
PROVIDERS: Emergency Medicine
DX: F23 Brief psychotic disorder (principal); F29 Unspecified psychosis not due to a substance or known physiological condition; G62.9 Polyneuropathy, unspecified; I50.9 Heart failure, unspecified; R01.1 Cardiac murmur, unspecified; J45.909 Unspecified asthma, uncomplicated; Z72.0 Tobacco use

== ENCOUNTER 2019-08-20 20:16 | Emergency (ER) | payer MEDICAID ==
[2019-08-20 20:26] VITALS: Ht 157.5 cm
[2019-08-20 21:30] VITALS: BP 122/97
--- NOTE | 2019-08-20 21:42 | NUR ---
DR MONTES NOTIFIED AND INFORMED OF PT's BEHAVIOR AND ASSESSMENT RESULTS. PT IS A LOW RISK PER DR MONTES. DR MONTES STATED TO GIVE RESOURCES TO PT AT TIME OF DISCHARGE. RESOURCES REVIEWED WITH PT AND SHE VERBALIZED UNDERSTANDING.
== END 2019-08-20 21:30 | disposition home or self-care (01) ==
LOC: D.ER 20:16
DX: S40.012A Contusion of left shoulder, initial encounter (principal); S00.81XA Abrasion of other part of head, initial encounter; L08.9 Local infection of the skin and subcutaneous tissue, unspecified; S80.02XA Contusion of left knee, initial encounter; S63.502A Unspecified sprain of left wrist, initial encounter; W19.XXXA Unspecified fall, initial encounter; Y93.01 Activity, walking, marching and hiking; Y92.008 Other place in unspecified non-institutional (private) residence as the place of occurrence of the external cause

== ENCOUNTER → 2020-08-21 14:11 | Outpatient (CLI) | payer MEDICAID ==
[2020-05-07 19:26] VITALS: BMI 49.9
[~2020-08-21 14:11] MED LIST changes: +ALBUTEROL SULF8.5 GM INH; +CYCLOBENZAPRINE10 MG PO; +FLUTICASONE PRO16 GM NASAL; +HYDROCODON-ACE1 EAC7 PO; +LYRICA25 MG PO
== END | disposition home or self-care (01) ==
LOC: D.CT 08-20 13:30
PROVIDERS: ATTEND Nurse Practitioner Family
DX: S52.502A Unspecified fracture of the lower end of left radius, initial encounter for closed fracture (principal)